=== PATIENT | female | born 2000 | race Caucasian/White ===

== ENCOUNTER 2021-01-04 16:15 | Outpatient (CLI) | payer MEDICAID ==
[2021-01-06 06:19] VITALS: BMI 25.8
== END 2021-01-04 17:20 | disposition home or self-care (01) ==
LOC: D.LDO 16:15
PROVIDERS: ATTEND Obstetrics & Gynecology
DX: O43.899 Other placental disorders, unspecified trimester (principal)

== ENCOUNTER 2021-01-06 05:55 | Inpatient (IN) | payer MEDICAID ==
[~2021-01-06] VITALS: Ht 165.1 cm; Wt 70.3 kg
[2021-01-06] MEDS ORDERED: PROTONIX20 MG (06:07)
[2021-01-06 06:19] VITALS: BP 128/75; Ht 165.1 cm; Wt 70.3 kg
[2021-01-06 07:15] LABS: HEMATOCRIT 32.7 % (36.0-48.0); HEMOGLOBIN 10.2 g/dL (12-16); MCH 24.9 pg (26.0-34.0); MCHC 31.2 g/dL (31.0-37.0); MCV 79.8 fL (80.0-100.0); MEAN PLATELET VOLUME 10.4 fL (7.4-10.4); RBC 4.1 10x6/uL (4.00-5.40); RDW 14.3 % (11.5-14.5); WBC 13.1 10x3/uL (4.8-10.8)
[2021-01-06 07:29] LABS: UDS - AMPHET NEGATIVE QUAL (NEGATIVE); UDS - BARB NEGATIVE QUAL (NEGATIVE); UDS - BENZO NEGATIVE QUAL (NEGATIVE); UDS - COCAINE NEGATIVE QUAL (NEGATIVE); UDS - OPIATE NEGATIVE QUAL (NEGATIVE); UDS - PCP NEGATIVE QUAL (NEGATIVE); UDS - THC POSITIVE QUAL (NEGATIVE)
--- NOTE | 2021-01-06 17:51 | NUR ---
PT LYING TO LEFT SIDE. WAKES UPON ENTERING ROOM. C/O PAIN TO PERINEUM. PT GIVEN MOTRIN 600 MG PO ORDERED. PT ALSO GIVEN DERMAPLAST AND TUCKS. INSTRUCTED ON ALL MEDS. VERBALIZES UNDERSTANDING.
[2021-01-06 19:20] VITALS: BP 122/85
--- NOTE | 2021-01-06 19:20 | NUR ---
RN TO BEDSIDE. SHIFT ASSESSMENT COMPLETED AT THIS TIME. SEE FLOWSHEET. PT AT THIS TIME WITH C/O CRAMPING RATED 2/10. EDUCATION PROVIDED. PT DENIES FURTHER NEEDS. WILL CONTINUE TO MONITOR. BED LOW, WHEELS LOCKED, CALL LIGHT AND PHONE WITHIN REACH, SIDE RAILS UP X2.
--- NOTE | 2021-01-06 21:45 | NUR ---
ROUNDS MADE. PT INFANT AT THIS TIME. DENIES PAIN OR NEEDS. MEAL TRAY REMOVED FROM ROOM PER REQUEST.
--- NOTE | 2021-01-07 00:20 | NUR ---
ROUNDS MADE. PT RESTING ON LEFT SIDE, RESPIRATIONS EVEN AND UNLABORED. INFANT RESTING IN OPEN CRIB AT BEDSIDE. PT LEFT UNDISTURBED.
--- NOTE | 2021-01-07 03:00 | NUR ---
NSY NURSE AT BEDSIDE DISCUSSING FEEDINGS WITH PT. PT DENIES NEEDS. WILL CONT TO MONITOR.
[2021-01-07 05:11] LABS: RAPID PLASMA REAGIN Non Reactive (Non Reactive)
--- NOTE | 2021-01-07 05:32 | NUR ---
ROUNDS MADE. PT RESTING IN LEFT LATERAL IN BED. RESPIRATIONS EVEN AND UNLABORED. PT LEFT UNDISTURBED.
--- NOTE | 2021-01-07 07:12 | NUR ---
RESTING WITH EYES CLOSED, RESP REGULAR AND UNLABORED, NO S/S OF DISTRESS NOTED. BED IN LOW POSITION WITH SRUP X2. CALL LIGHT AND PHONE WITHIN REACH.
--- NOTE | 2021-01-07 08:37 | NUR ---
BF . ASSISTANCE PROVIDED. PT INSTRUCTED TO CALL RN USING CALL LIGHT WHEN FEEDING COMPELTED FOR SHIFT ASSESSMENT. POC DISCUSSED WITH PT AND SIG OTHER, BOTH VERBALIZE UNDERSTANDING AND DENY QUESTIONS. SIG OTHER SUPPORTIVE AND ATTENTIVE. BED IN LOW POSITION WITH SRUP X2. CALL LIGHT AND PHONE WITHIN REACH.
--- NOTE | 2021-01-07 09:41 | NUR ---
CONTINUES TO CARE FOR . WILL CALL RN WHEN DONE FOR SHIFT ASSESSMENT. DENIES NEEDS.
--- NOTE | 2021-01-07 10:54 | NUR ---
UP IN BR. PADS PROVIDED. SCANT RUBRA LOCHIA NOTED, NO CLOTS. DENIES PAIN AND NEEDS AT THIS TIME.
--- NOTE | 2021-01-07 12:43 | NUR ---
PT RATES PAIN AT 1/10, FUNDUS FIRM AT U/1 WITH LIGHT BLEEDING NOTED TO FATOU PAD, SHE DENIES CLOTS WITH VOIDS. AMB ABOUT ROOM PER SELF WITH NO COMPLAINTS. ADDITIONAL FATOU PADS AND WASH CLOTHS PLACED IN BATHROOM REQUESTED.
--- NOTE | 2021-01-07 13:36 | NUR ---
RESTING WITH EYES CLOSED LAYING ON R SIDE. RESP REGULAR AND UNLABORED, NO S/S OF DISTRESS NOTED. PT NOT DISTURBED TO ALLOW FOR REST. BED IN LOW POSITOIN WITH SRUP X2. CALL LIGHT AND PHONE WITHIN REACH.
[2021-01-07 16:25] VITALS: BP 108/57
--- NOTE | 2021-01-07 16:25 | NUR ---
VSS. FUNDUS FIRM, MIDLINE AND U2 WITH SCANT RUBRA LOCHIA, NO CLOTS NOTED. BF . C/O ABD CRAMPING, MEDICATED PER EMAR. ICE WATER PROVIDED. DENIES ADDITIONAL NEEDS. BED IN LOW POSITION WITH SRUP X2. CALL LIGHT AND PHONE WITHIN REACH. WILL CONTINUE TO MONITOR.
--- NOTE | 2021-01-07 17:13 | NUR ---
DENIES PAIN AND NEEDS. BONDING WITH INFANT. BED IN LOW POSITION WITH SRUP X2. CALL LIGHT AND PHONE WITHIN REACH.
[2021-01-07 19:50] VITALS: BP 125/82
--- NOTE | 2021-01-07 19:50 | NUR ---
RN TO BEDSIDE. SHIFT ASSESSMENT COMPLETED AT THIS TIME. SEE FLOWSHEET. PT DENIES PAIN OR NEEDS. BED LOW, WHEELS LOCKED, CALL LIGHT AND PHONE WITHIN REACH, SIDE RAILS UP X2. WILL CONTINUE TO MONITOR PRN.
--- NOTE | 2021-01-07 22:30 | NUR ---
ROUNDS MADE. PT AT THIS TIME. DENIES NEEDS. WILL CONTINUE TO MONITOR.
--- NOTE | 2021-01-08 01:15 | NUR ---
ROUNDS MADE. PT RESTING IN RT LATERAL, RESPIRATIONS EVEN AND UNLABORED. PT LEFT UNDISTURBED.
--- NOTE | 2021-01-08 03:45 | NUR ---
PT UP WITH INFANT ATTEMPTING TO BREASTFEED. DENIES PAIN OR NEEDS.
--- NOTE | 2021-01-08 05:58 | NUR ---
ROUNDS MADE. PT RESTING WITH RESPIRATIONS EVEN AND UNLABORED. PT LEFT UNDISTURBED.
[2021-01-08 07:25] VITALS: BP 117/68
--- NOTE | 2021-01-08 07:25 | NUR ---
PT SITTING UP IN BED. INFANT. VSS. HRRR WITHOUT AUDIBLE MURMUR. BBS CLEAR. BS X 4. ABDOMEN SOFT/NON-DISTENDED. FUNDUS FIRM AT U/U. RUBRA LOCHIA SMALL AMT. NO CLOTS OR HEAVY BLEEDING PER PT STATES. NEG HOMANS' SIGN. PPP. NO EDEMA NOTED TO BLE. PT C/O ABDOMINAL CRAMPING OF "4" ON 0-10 PAIN SCALE. MOTRIN 600 MG GIVEN PO ORDERED. PT INSTRUCTED ON MED. VERBALIZES UNDERSTANDING. FRESH ICE WATER PROVIDED TO PT. SR UP X 2. CALL LIGHT IN REACH.
[2021-01-08] MEDS ORDERED: HYDROCODON-ACE1 EAC7 PO (08:46)
[2021-01-08] MEDS ORDERED: MOTRIN600 MG PO (08:46)
--- NOTE | 2021-01-08 08:58 | NUR ---
PT SITTING UP IN BED. CONSUMING BREAKFAST BROUGHT BY FAMILY. DENIES NEEDS OR PAIN.
--- NOTE | 2021-01-08 09:43 | NUR ---
DR GARCIA VISITS WITH PT.
--- NOTE | 2021-01-08 11:10 | NUR ---
PT SITTING UP IN BED. DENIES NEEDS OR C/O. STATES OK WITH ROOMING IN.
--- NOTE | 2021-01-08 13:02 | NUR ---
PT PROVIDED LINEN FOR SHOWER.
--- NOTE | 2021-01-08 14:30 | NUR ---
PT SITTING UP IN BED. DENIES PAIN OR NEEDS. SR UP X 2. CALL LIGHT IN REACH.
--- NOTE | 2021-01-08 15:20 | NUR ---
DR GARCIA ON UNIT. VISITS WITH PT. STATES PT MAY ROOM IN NOT BEING DISCHARGED TODAY.
--- NOTE | 2021-01-08 17:05 | NUR ---
PT C/O ABDOMINAL CRAMPING OF "2-3" ON 0-10 PAIN SCALE. MOTRIN 600 MG GIVEN PO ORDERED. PT INSTRUCTED ON MED. VERBALIZES UNDERSTANDING.
--- NOTE | 2021-01-08 17:15 | NUR ---
PT GIVEN DISCHARGE INSTRUCTIONS. VERBALIZES UNDERSTANDING OF ALL INSTRUCTIONS. COPIES GIVEN TO PT. PT GIVEN COPIES OF ALL INSTRUCTIONS. RX FOR NORCO AND MOTRIN GIVEN TO PT. PT INSTRUCTED ON ROOMING IN POLICY. PT VERBALIZES UNDERSTANDING. FORMS SIGNED.
--- NOTE | 2021-01-08 17:20 | NUR ---
PT DISCHARGED TO ROOMING IN STATUS.
[2021-01-09 13:11] LABS: UDSC - AMPHET Negative ng/mL (Cutoff=1000); UDSC - BARB Negative ng/mL (Cutoff=300); UDSC - BENZO Negative ng/mL (Cutoff=300); UDSC - COC Negative ng/mL (Cutoff=300); UDSC - METH Negative ng/mL (Cutoff=300); UDSC - OPIATES Negative ng/mL (Cutoff=300); UDSC - PCP Negative ng/mL (Cutoff=25); UDSC - PROPOXY Negative ng/mL (Cutoff=300); UDSC - THC Positive (Cutoff=50)
== END 2021-01-08 17:20 | disposition home or self-care (01) | DRG 807 ==
LOC: D.LD 05:55
PROVIDERS: ADMIT Obstetrics & Gynecology; ATTEND Obstetrics & Gynecology
PROC: 10E0XZZ Delivery of Products of Conception, External Approach (ICD-10-PCS; principal; 2021-01-06)
PROC: 3E033VJ Introduction of Other Hormone into Peripheral Vein, Percutaneous Approach (ICD-10-PCS; 2021-01-06)
PROC: 10907ZC Drainage of Amniotic Fluid, Therapeutic from Products of Conception, Via Natural or Artificial Opening (ICD-10-PCS; 2021-01-06)
DX: O76 Abnormality in fetal heart rate and rhythm complicating labor and delivery (principal); Z37.0 Single live birth; Z3A.40 40 weeks gestation of pregnancy